=== PATIENT | female | born 1980 | race Caucasian/White ===

== ENCOUNTER 2016-11-04 07:05 | Emergency (ER) | payer OTHER ==
[2016-11-04 07:16] VITALS: BP 108/74
[2016-11-04] MEDS ORDERED: Doxycycline (NF) 100 MG TAB PO ONE (07:22)
[2016-11-04] MEDS ORDERED: DOXYcycline CAP(*) 100 MG PO ONE (07:27)
--- NOTE | 2016-11-04 08:22 | UC ---
Rambo Her Auryana, scribed for Geo Corbett MD on 11/04/16 at 0723 . Bite Injury/Animal HPI - HPI Summary HPI Summary: 36 year old female comes in s/p tick bite. She states that she believes she may have been bitten on Wednesday (10/31/16). She reports that she removed the tick 2 days ago (11/02/16)- states it was engorged but believes she also removed the head of the tick too. Patient states that she wanted to be seen to "make sure" since she is active and is often outside running or hiking. She denies any cold/ flu symptoms or any rashes. - History of Current Complaint Stated Complaint: TICK BITE Time Seen by Provider: 11/04/16 07:07 Hx Obtained From: Patient Severity Currently: None Severity Initially: Mild Onset/Duration: Sudden Onset - Wednesday10/31/16, Resolved - Wednesday11/02/16 Type of Bite: Animal - tick Has Animal Been Immunized?: N/A Associated Signs And Symptoms: Positive: Erythema - at site of tick bite - left thigh Hx of Bite: Unprovoked Animal Available for Observation: No Animal Control Notified: No - Risk Factors Infection/Sepsis Risk Factors: Negative - Allergies/Home Medications Allergies/Adverse Reactions: Allergies Allergy/AdvReac Type Severity Reaction Status Date / Time No Known Allergies Allergy Verified 11/01/15 15:33 PMH/Surg Hx/FS Hx/Imm Hx Endocrine History Of: Denies: Diabetes Cardiovascular History Of: Denies: Hypertension, Pacemaker/ICD GI/ History Of: Denies: Renal Disease - Surgical History Surgical History: None - Social History Occupation: Employed Full-time - Veterinary physician Alcohol Use: Rare Substance Use Type: None Smoking Status (MU): Never Smoked Tobacco Review of Systems Constitutional: Negative Skin: Other - erythematus area at the Eyes: Negative ENT: Negative Respiratory: Negative Cardiovascular: Negative Gastrointestinal: Negative Genitourinary: Negative Motor: Negative Neurovascular: Negative Musculoskeletal: Negative Neurological: Negative Psychological: Negative All Other Systems Reviewed And Are Negative: Yes Physical Exam Triage Information Reviewed: Yes Appearance: Well-Appearing, No Pain Distress, Well-Nourished Vital Signs: Initial Vital Signs Temp 97.7 F 11/04/16 07:11 Pulse 60 11/04/16 07:11 Resp 16 05/03/17 07:11 BP 108/74 11/04/16 07:11 Pulse Ox 98 11/04/16 07:11 Vital Signs Reviewed: Yes Eyes: Positive: Conjunctiva Clear Neck: Positive: Supple Musculoskeletal: Positive: Strength Intact, ROM Intact, No Edema Neurological: Positive: Alert, Muscle Tone Normal Psychological: Positive: Age Appropriate Behavior Skin: Positive: Other - 1.5 erythematus spot on the left lateral thigh Bite Injury Course/Dx - Course Course Of Treatment: TICK PROBABLY WAS IN > 36 HOURS. NO BULLSEYE RASH, PATIENT FEELS WELL. GIVEN DOXY 200MG PO ONCE. - Differential Dx/Diagnosis Provider Diagnoses: TICK BITE Discharge - Discharge Plan Condition: Stable Disposition: HOME Patient Education Materials: Tick Bite (ED) Referrals: No Primary Care Phys,NOPCP [Primary Care Provider] - Additional Instructions: Please follow up with you primary care physician if a rash or other symptoms appear. The documentation as recorded by the Rambo huerta Auryana accurately reflects the service I personally performed and the decisions made by me, Geo Corbett MD.
== END 2016-11-04 07:40 | disposition home or self-care (01) ==
LOC: UCEAST 07:05
DX: S70.362A Insect bite (nonvenomous), left thigh, initial encounter (principal); W57.XXXA Bitten or stung by nonvenomous insect and other nonvenomous arthropods, initial encounter; Y93.9 Activity, unspecified; Y92.9 Unspecified place or not applicable
CPT/HCPCS: 99212; A9270-GY; G0463

== ENCOUNTER 2018-03-28 12:05 | Emergency (ER) | payer BC, OTHER ==
[2018-03-28 13:09] VITALS: BP 110/71
--- NOTE | 2018-03-28 13:36 | UC ---
Complaint Female HPI - HPI Summary HPI Summary: This patient is a 37 year old F presenting to [facility] with a chief complaint of UTI like symptoms including dysuria and urinary urgency for the past two days with hematuria yesterday and lower abdominal pain this morning. Pain is 2/ 10 in severity. Patient denies fever, chills, and flank pain. She reports mildly odorous vaginal discharge last week that is currently improved. She denies previous UTIs. Patient is not concerned for STIs or . - History Of Current Complaint Chief Complaint: UCGU Stated Complaint: URINARY COMPLAINT Time Seen by Provider: 03/28/18 13:25 Hx Obtained From: Patient Hx Last Menstrual Period: 03/16/18 Onset/Duration: Gradual Onset, Lasting Days Timing: Constant Severity Initially: Mild Severity Currently: Moderate Pain Intensity: 2 Pain Scale Used: 0-10 Numeric Aggravating Factor(s): Urination Associated Signs And Symptoms: Negative: Fever, Back Pain - Allergies/Home Medications Allergies/Adverse Reactions: Allergies Allergy/AdvReac Type Severity Reaction Status Date / Time No Known Allergies Allergy Verified 03/28/18 13:08 Home Medications: Home Medications Carbamazepine [Tegretol] 200 mg PO BID 03/28/18 [History Confirmed 03/28/18] Ibuprofen 400 mg PO ONCE PRN 03/28/18 [History Confirmed 03/28/18] PMH/Surg Hx/FS Hx/Imm Hx Previously Healthy: Yes - Surgical History Surgical History: None - Family History Known Family History: Negative: Renal Disease - Social History Alcohol Use: Occasionally Substance Use Type: Marijuana Smoking Status (MU): Never Smoked Tobacco Review of Systems Constitutional: Negative Gastrointestinal: Abdominal Pain Genitourinary: Dysuria, Hematuria, Urgency Musculoskeletal: Negative All Other Systems Reviewed And Are Negative: Yes Physical Exam - Summary Physical Exam Summary: General: well-appearing, no pain distress Skin: warm, color reflects adequate perfusion, dry Head: normal Eyes: EOMI, ERASMO ENT: normal Neck: supple, nontender Respiratory: CTA, breath sounds present Cardiovascular: RRR Abdomen: soft, mild tenderness to palpation to the suprapubic abdomen Bowel: present Musculoskeletal: normal, strength/ROM intact Neurological: sensory/motor intact, A&O x3 Psychological: affect/mood appropriate Triage Information Reviewed: Yes Vital Signs: Initial Vital Signs Temp 98.4 F 03/28/18 13:05 Pulse 62 03/28/18 13:05 Resp 18 03/28/18 13:05 BP 110/71 03/28/18 13:05 Pulse Ox 100 03/28/18 13:05 Vital Signs Reviewed: Yes Complaint Female Dx - Differential Dx/Diagnosis Provider Diagnoses: UTI Discharge - Sign-Out/Discharge Documenting (check all that apply): Patient Departure All imaging exams completed and their final reports reviewed: No Studies - Discharge Plan Condition: Stable Disposition: HOME Prescriptions: Phenazopyridine 200 mg (NF) [Pyridium 200 MG tab *] 200 mg PO TID PRN #10 tab PRN Reason: Pain Sulfamethox/Trimethoprim DS* [Bactrim DS 800/160 TAB*] 1 tab PO BID #14 tab Patient Education Materials: Urinary Tract Infection in Women (ED) Referrals: [facility] [Outside] Additional Instructions: FOLLOW UP WITH YOUR DOCTOR IF NOT COMPLETELY IMPROVED. GET RECHECKED FOR ANY WORSENING OF YOUR CONDITION; PAIN, FEVER, YOU FEEL ILL OR QUESTIONS OR CONCERNS. - Billing Disposition and Condition Condition: STABLE Disposition: Home - Attestation Statements Document Initiated by Scribe: Yes Documenting Scribe: Netta Stover Provider For Whom Homaibe is Documenting (Include Credential): Geo Corbett MD Scribe Attestation: INetta, scribed for Geo Corbett MD on 03/28/18 at 1427. Scribe Documentation Reviewed: Yes Provider Attestation: The documentation as recorded by the Netta huerta accurately reflects the service I personally performed and the decisions made by me, Geo Corbett MD
== END 2018-03-28 14:28 | disposition home or self-care (01) ==
LOC: UCEAST 12:05
DX: N39.0 Urinary tract infection, site not specified (principal); R31.9 Hematuria, unspecified
CPT/HCPCS: 81003; 84702; 87077; 87086; 87186; 99212; G0463